=== PATIENT | female | born 1975 | race Caucasian/White ===

== ENCOUNTER 2020-07-08 12:49 | Outpatient (CLI) | payer OTHER | END 2020-07-08 18:48 | disposition home or self-care (01) | LOC: SMA 12:49 | DX: Z12.31 Encounter for screening mammogram for malignant neoplasm of breast (principal); N83.202 Unspecified ovarian cyst, left side; N83.201 Unspecified ovarian cyst, right side; N92.0 Excessive and frequent menstruation with regular cycle; M54.5 Low back pain | CPT/HCPCS: 76830-TC; 76857; 77067 ==